=== PATIENT | female | born 1945 | race Hispanic/Latino ===

== ENCOUNTER 2017-12-13 09:16 | Emergency (ER) | payer BC, MEDICARE ==
[2017-12-13 09:27] VITALS: TEMP 98.8
--- NOTE | 2017-12-13 09:27 | ED PDOC ---
Arrival/HPI - General Time Seen by Provider: 12/13/17 09:19 Historian: Patient - History of Present Illness Narrative History of Present Illness (Text): 12/13/17 09:25 A 72 year old female, whose past medical history includes , is brought in by ambulance and accompanied by sister, presents to the emergency department complaining of shoulder pain s/p fall. Patient reports she fell down the stairs and hit her right shoulder into wall. She screamed for her to help her and an ambulance was called shortly afterwards. Notes also experiencing headache. Patient denies any nausea, vomiting, visual changes, no LOC, or any other complaints. Also, patient mentions she does not take any anticoagulants. PMD: Dr. Odom Symptom Onset: Sudden Symptom Course: Unchanged Past Medical History - Provider Review Nursing Documentation Reviewed: Yes Family/Social History - Physician Review Nursing Documentation Reviewed: Yes Family/Social History: No Known Family HX Allergies/Home Meds Allergies/Adverse Reactions: Allergies No Known Allergies Allergy (Verified 12/13/17 09:29) Home Medications: Home Meds Medication Instructions Recorded Confirmed Valsartan/Hydrochlorothiazide 12.5 mg pe PO DAILY 12/13/17 12/13/17 [Valsartan-Hctz 160-12.5 mg Tab] amLODIPine [Norvasc] 5 mg PO DAILY 12/13/17 12/13/17 metFORMIN [glucOPHAGE] 500 mg PO BID 12/13/17 12/13/17 Review of Systems - Review of Systems Constitutional: Normal Eyes: Normal. absent: Vision Changes ENT: Normal Respiratory: Normal Cardiovascular: Normal Gastrointestinal: Normal. absent: Nausea, Vomiting Genitourinary Female: Normal Musculoskeletal: Other (right shoulder pain s/p fall) Skin: Normal Neurological: Headache Endocrine: Normal Hemo/Lymphatic: Normal Psychiatric: Normal Physical Exam Vital Signs Reviewed: Yes Vital Signs Temp Pulse Resp BP Pulse Ox 12/13/17 09:16 98.8 F 103 H 20 136/72 97 Temperature: Afebrile Blood Pressure: Normal Pulse: Regular Respiratory Rate: Normal Appearance: Positive for: Well-Appearing Pain Distress: Mild Mental Status: Positive for: Alert and Oriented X 3 - Systems Exam Head: Present: Swelling (area of swelling to right frontal scalp) Pupils: Present: PERRL Extroacular Muscles: Present: EOMI Conjunctiva: Present: Normal Mouth: Present: Moist Mucous Membranes Neck: Present: Normal Range of Motion Respiratory/Chest: Present: Clear to Auscultation, Good Air Exchange. No: Respiratory Distress, Accessory Muscle Use Cardiovascular: Present: Regular Rate and Rhythm, Normal S1, S2. No: Murmurs Abdomen: Present: Normal Bowel Sounds. No: Tenderness, Distention, Peritoneal Signs Back: Present: Normal Inspection Upper Extremity: Present: NORMAL PULSES (distal pulses intact), Tenderness ( right shoulder), Neurovascularly Intact (right shoulder). No: Deformity (right shoulder) Lower Extremity: Present: Normal Inspection. No: Edema Neurological: Present: GCS=15, CN II-XII Intact, Speech Normal. No: Other (no neurological deficits) Skin: Present: Warm, Dry, Normal Color. No: Rashes Psychiatric: Present: Alert, Oriented x 3, Normal Insight, Normal Concentration Medical Decision Making ED Course and Treatment: 12/13/17 09:25 Impression: 72 year old female with right shoulder pain s/p fall. Physical exam shows right shoulder tenderness, no deformity, neurovascular intact, distal pulses intact; swelling to right frontal scalp; no neurological deficits. Plan: -- Right Shoulder X-Ray -- Toradol -- Reassess and disposition Progress Notes: 12/13/17 10:30 Chest X-ray shows commuted and impacted fracture to head of right humerus. Joint space is preserved with no evidence of dislocation. Interpreted by me. - RAD Interpretation Radiology Orders: 12/13/17 09:40 SHOULDER RIGHT [RAD] Stat comminuted fracture femoral head. Joint space is preseved. - Medication Orders Current Medication Orders: Discontinued Medications Ketorolac Tromethamine (Toradol) 60 mg IM STAT STA Stop: 12/13/17 09:41 Last Admin: 12/13/17 10:01 Dose: 60 mg MAR Pain Assessment Document 12/13/17 10:01 EQ (Rec: 12/13/17 10:01 EQ [id number]) Pain Reassessment Is this a pain reassessment? No Sleep Is patient sleeping during reassessment? No Presence of Pain Presence of Pain Yes IM Administration Charges Document 12/13/17 10:01 EQ (Rec: 12/13/17 10:01 EQ [id number]) Charges for Administration # of IM Administrations 1 Oxycodone/Acetaminophen (Percocet 5/325 Mg Tab) 1 tab PO STAT STA Stop: 12/13/17 11:07 - Scribe Statement The provider has reviewed the documentation as recorded by the Lloyd Mckinney Provider Lloyd Attestation: All medical record entries made by the Scribe were at my direction and personally dictated by me. I have reviewed the chart and agree that the record accurately reflects my personal performance of the history, physical exam, medical decision making, and the department course for this patient. I have also personally directed, reviewed, and agree with the discharge instructions and disposition. Disposition/Present on Arrival - Present on Arrival Any Indicators Present on Arrival: No History of DVT/PE: No History of Uncontrolled Diabetes: No Urinary Catheter: No History of Decub. Ulcer: No - Disposition Have Diagnosis and Disposition been Completed?: Yes Diagnosis: Humeral head fracture, Head injury Disposition: HOME/ ROUTINE Disposition Time: 11:25 Patient Plan: Discharge Condition: STABLE Additional Instructions: see your orthopedist this week. Prescriptions: oxyCODONE/Acetaminophen [Percocet 5/325 mg Tab] 1 tab PO TID PRN #20 tab PRN Reason: Pain, Moderate (4-7) Referrals: Roger Odom MD [Primary Care Provider] - Follow up with primary Mariusz Sarkar DO [Staff Provider] - Follow up with primary
[2017-12-13] MEDS ORDERED: Oxycodone/Acetaminophen 5/325 mg Tab PO STA (11:06)
--- NOTE | 2017-12-13 11:19 | RAD ---
PROCEDURE: Radiographs of the Right Shoulder HISTORY: fall COMPARISON: No prior. FINDINGS: BONES: There is a comminuted displaced fracture of the right humeral neck. The humerus is displaced anteriorly relative to the bony glenoid. JOINTS: As above SOFT TISSUES: Normal. OTHER FINDINGS: None. IMPRESSION: There is a comminuted displaced fracture of the right humeral neck. The humerus is displaced anteriorly relative to the bony glenoid.
[2017-12-13 11:45] VITALS: BP 140/73; PULSE 77; RESP 18; O2SAT 98
== END 2017-12-13 11:52 | disposition home or self-care (01) ==
LOC: ED 09:16
DX: S42.291A Other displaced fracture of upper end of right humerus, initial encounter for closed fracture (principal); S09.90XA Unspecified injury of head, initial encounter; W10.9XXA Fall (on) (from) unspecified stairs and steps, initial encounter
CPT/HCPCS: 73030; 96372; 99285; J1885; L3650

== ENCOUNTER 2018-11-11 09:03 | Day surgery (SDC) | payer MEDICARE ==
[2018-11-09 14:11] VITALS: BMI 30.1
[2018-11-11] MEDS ORDERED: Lactated Ringer's 1,000 ML IV SCH (09:15)
[2018-11-11] MEDS ORDERED: Propofol 10 mg/ml Inj (20 ML) ONE (10:48)
[2018-11-11 13:01] VITALS: TEMP 98.1
[2018-11-11 13:02] VITALS: BP 102/70; PULSE 80; RESP 20; O2SAT 98
== END 2018-11-11 13:48 | disposition home or self-care (01) ==
LOC: ENDO 09:03
PROVIDERS: ATTEND Internal Medicine Gastroenterology
DX: K63.5 Polyp of colon (principal); K57.30 Diverticulosis of large intestine without perforation or abscess without bleeding; K64.8 Other hemorrhoids; R19.4 Change in bowel habit
CPT/HCPCS: 45380; 88305; J2001; J2704; J7040; J7120